=== PATIENT | male | born 1940 | race Caucasian/White ===

== ENCOUNTER → 2018-09-13 | Outpatient (CLI) | payer OTHER, BC | LOC: BMCIMAGING 08:39 | PROVIDERS: ATTEND Family Medicine | DX: R05 Cough (principal); J40 Bronchitis, not specified as acute or chronic; J18.9 Pneumonia, unspecified organism ==

== ENCOUNTER 2018-09-23 23:20 | Emergency (ER) | payer OTHER, BC ==
[2018-09-24 00:04] LABS: PLATELET COUNT 358 10^3/uL (150-400)
--- NOTE | 2018-09-24 00:34 | EDPHY ---
H & P Stated Complaint: hx pnuemonia and treated cough worsening Time Seen by Provider: 09/23/18 23:32 HPI/ROS: Chief Complaint: Cough, chest discomfort HPI: 77-year-old male was diagnosed with pneumonia on the 9th of this month. He completed a one-week course of Augmentin. He has been having continuing cough productive of some yellowish sputum and some occasional intermittent mild chest discomfort. Last discomfort was several hours ago. It resolved after approximately 30 min to an hour. At worst is a 3/10. No fevers or chills. Some mild shortness of breath associated with cough. No wheeze. No nausea vomiting or diarrhea. He did have a negative flu test at the time of his diagnosis. Chest x-ray was positive for infiltrate. He is presenting because he is concerned that his symptoms are not improving. ROS: 10 systems were reviewed and were negative except those elements noted in the HPI. PMH: Hypothyroidism, anxiety Social History: No smoking, occasional alcohol, no recreational drug use Family History: non-contributory Physical Exam: Gen: Awake, Alert, No Distress HEENT: Nose: no rhinorrhea Eyes: PERRLA, EOMI Mouth: Moist mucosa Neck: Supple, no JVD Chest: nontender, lungs clear to auscultation Heart: S1, S2 normal, no murmur Abd: Soft, non-tender, no guarding Back: no CVA tenderness, no midline tenderness Ext: no edema, non-tender Skin: no rash Neuro: CN II-XII intact, Sensation grossly intact, Strength 5/5 in bilateral upper and lower extremities - Personal History Current Tetanus/Diphtheria Vaccine: Yes Current Tetanus Diphtheria and Acellular Pertussis (TDAP): Yes - Medical/Surgical History Hx Asthma: No Hx Chronic Respiratory Disease: No Hx Diabetes: No Hx Cardiac Disease: No Hx Renal Disease: No Hx Cirrhosis: No Hx Alcoholism: No Hx HIV/AIDS: No Hx Splenectomy or Spleen Trauma: No Other PMH: ANXIETY. HYPOTHYROIDISM, - Social History Smoking Status: Never smoked Constitutional: Initial Vital Signs Temperature (C) 36.8 C 09/23/18 23:25 Heart Rate 74 09/23/18 23:25 Respiratory Rate 18 09/23/18 23:25 Blood Pressure 124/81 H 09/23/18 23:25 O2 Sat (%) 94 09/23/18 23:25 O2 Delivery Mode Room Air Allergies/Adverse Reactions: No Known Allergies Allergy (Unverified 04/04/16 20:58) Home Medications: Medication Instructions Recorded Levothyroxine [Synthroid 75 mcg 04/04/16 (*)] clonAZEPAM [KLONOPIN] 04/04/16 Augmentin 875 MG TAB (*) 09/23/18 levOFLOXACIN [levAQUIN (*)] 750 mg PO DAILY #10 tab 09/24/18 Medical Decision Making - Diagnostics Imaging Results: Imaging Impressions Chest X-Ray 09/23/18 23:41 Impression: Persistent but slightly decreased airspace consolidation right lower lobe compatible with pneumonia.. ED Course/Re-evaluation: Chest x-rays consistent with persistent pneumonia. Patient is not ill in appearance. Oxygen saturations are excellent. Vital signs normal. Age adjusted D-dimer is normal. No evidence of acute coronary syndrome. Will prescribe him Levaquin as he has failed oral Augmentin, follow up with primary care physician. - Data Points Laboratory Results: Laboratory Results 09/23/18 23:52 09/23/18 09/23/18 09/23/18 23:59 23:52 23:52 WBC RBC Hgb Hct MCV MCH MCHC RDW Plt Count MPV Neut % (Auto) Lymph % (Auto) [place] % (Auto) Eos % (Auto) Baso % (Auto) Nucleat RBC Rel Count Absolute Neuts (auto) Absolute Lymphs (auto) Absolute Monos (auto) Absolute Eos (auto) Absolute Basos (auto) Absolute Nucleated RBC Immature Gran % Immature Gran # D-Dimer 0.55 ug/mLFEU H ug/mLFEU (0.00-0.50) Sodium Pending Potassium Pending Chloride Pending Carbon Dioxide Pending Anion Gap Pending BUN Pending Creatinine Pending Estimated GFR Pending Glucose Pending Calcium Pending POC Troponin I 0.00 ng/mL ng/mL (0.00-0.08) 09/23/18 23:52 WBC 7.33 10^3/uL 10^3/uL (3.80-9.50) RBC 4.44 10^6/uL 10^6/uL (4.40-6.38) Hgb 13.1 g/dL L g/dL (13.7-17.5) Hct 39.1 % L % (40.0-51.0) MCV 88.1 fL fL (81.5-99.8) MCH 29.5 pg pg (27.9-34.1) MCHC 33.5 g/dL g/dL (32.4-36.7) RDW 12.9 % % (11.5-15.2) Plt Count 358 10^3/uL 10^3/uL (150-400) MPV 8.8 fL fL (8.7-11.7) Neut % (Auto) 60.3 % % (39.3-74.2) Lymph % (Auto) 26.1 % % (15.0-45.0) [place] % (Auto) 8.9 % % (4.5-13.0) Eos % (Auto) 2.9 % % (0.6-7.6) Baso % (Auto) 0.7 % % (0.3-1.7) Nucleat RBC Rel Count 0.0 % % (0.0-0.2) Absolute Neuts (auto) 4.43 10^3/uL 10^3/uL (1.70-6.50) Absolute Lymphs (auto) 1.91 10^3/uL 10^3/uL (1.00-3.00) Absolute Monos (auto) 0.65 10^3/uL 10^3/uL (0.30-0.80) Absolute Eos (auto) 0.21 10^3/uL 10^3/uL (0.03-0.40) Absolute Basos (auto) 0.05 10^3/uL 10^3/uL (0.02-0.10) Absolute Nucleated RBC 0.00 10^3/uL 10^3/uL (0-0.01) Immature Gran % 1.1 % % (0.0-1.1) Immature Gran # 0.08 10^3/uL 10^3/uL (0.00-0.10) D-Dimer Sodium Potassium Chloride Carbon Dioxide Anion Gap BUN Creatinine Estimated GFR Glucose Calcium POC Troponin I Point of Care Test Results: Chemistry 09/23/18 23:59 POC Troponin I 0.00 ng/mL ng/mL (0.00-0.08) Departure - Departure Disposition: Home, Routine, Self-Care Clinical Impression: Pneumonia Condition: Good Instructions: Pneumonia (ED) Additional Instructions: Complete her full course of antibiotics. Follow up with primary care physician in 2-3 days for recheck. Return to the emergency department for worsening cough, shortness of breath, fevers, or any other concerns. Referrals: Mala Campuzano MD [Primary Care Provider] - As per Instructions Prescriptions: levOFLOXACIN [levAQUIN (*)] 750 mg PO DAILY #10 tab
[2018-09-24 00:47] VITALS: BP 123/84
== END 2018-09-24 00:59 | disposition home or self-care (01) ==
DX: J18.1 Lobar pneumonia, unspecified organism (principal); F41.9 Anxiety disorder, unspecified; E03.9 Hypothyroidism, unspecified
CPT/HCPCS: 84484-ER

== ENCOUNTER → 2019-01-14 | Outpatient (CLI) | payer OTHER, BC | LOC: BMCIMAGING 10:35 | PROVIDERS: ATTEND Emergency Medicine | DX: J40 Bronchitis, not specified as acute or chronic (principal) ==

== ENCOUNTER 2019-02-12 14:23 | Inpatient (IN) | payer OTHER, BC | END 2019-02-22 16:38 | disposition home health service (06) | LOC: F2N 02-18 08:48 → F3E 02-21 10:32 → F2N 15:26 ==

== ENCOUNTER → 2019-02-27 | Outpatient (CLI) | payer OTHER, BC | LOC: CREHS 10:38 ==